=== PATIENT | male | born 1945 | race Caucasian/White ===

== ENCOUNTER 2020-03-04 12:06 | Day surgery (SDC) | payer OTHER ==
[~2020-03-04] VITALS: Ht 180.3 cm; Wt 91.8 kg
[~2020-03-04 12:06] MED LIST: ACET500 PO; Artificial Tea1 EACH BOTHEYES; Ascorbic Acid500 MG PO; CALCIUM PO; CENTRUM SILVER1 EAC2 PO; FIBER POWDER; FISH1000 PO; GABA100 PO; GLUC500 PO; HYDR25SUP PR; IBUP200 PO; MULVITMINF PO; SUCR1 PO; SULF500A PO; TRAM50 PO
--- NOTE | 2020-03-04 12:58 | NUR ---
PT ADMITTED TO [facility]. AGREES WITH PLANNED SURGERY. LUNG SOUNDS CLEAR. NOZIN NO NARES BILATERALLY.
--- NOTE | 2020-03-04 19:37 | NUR ---
SHIFT SUMMARY PAIN HAS BEEN DIFFICULT TO MANAGED. PT HAS REQUIRED IV PAIN MEDICATION. HE REMAINS DROWSY. CONTINUOUS PULSE OX PLACED FOR HIGH RISK PAIN MANAGEMENT. PT'S IS AT THE BEDSIDE FOR SUPPORT. PT TOLERATING PO. VSS. REPORT GIVEN TO LILLIAN GREGORY.
[2020-03-05 04:09] LABS: BASOPHILS ABSOLUTE AUTO 0.01 K/mm3 (0.00-0.23); BASOPHILS PERCENT AUTO 0 % (0-2); EOSINOPHILS PERCENT AUTO 0 % (0-6); Hematocrit 40.1 % (37.0-53.0); Hemoglobin 13.1 g/dL (13.5-17.5); IMMATURE GRAN ABSOLUTE AUTO 0.06 K/mm3 (0.00-0.10); IMMATURE GRAN PERCENT AUTO 0 % (0-1); LYMPHOCYTES ABSOLUTE AUTO 0.49 K/mm3 (0.84-5.20); LYMPHOCYTES PERCENT AUTO 4 % (21-46); MONOCYTES PERCENT AUTO 4 % (4-13); Mean Corpuscular HGB 30.3 pg (26.0-34.0); Mean Corpuscular HGB Conc 32.7 g/dL (31.5-36.5); Mean Corpuscular Volume 93 fL (80-100); Mean Platelet Volume 10.4 fL (9.1-12.4); NEUTROPHILS ABSOLUTE AUTO 12.56 K/mm3 (1.96-9.15); NEUTROPHILS PERCENT AUTO 92 % (41-73); Platelet Count 180 K/mm3 (150-400); RDW Coefficient Variation 12.7 % (11.7-14.2); RDW Standard Deviation 43.7 fL (35.1-46.3); Red Blood Cell Count 4.33 M/mm3 (4.30-5.90); White Blood Cell Count 13.72 K/mm3 (4.00-11.30)
--- NOTE | 2020-03-05 04:32 | NUR ---
SHIFT SUMMARY POD 1 R TKA [id number], PT UP AND AMBULATING. TOLERATING WELL. PAIN MANAGED PER EMAR. PT STATES ABLE TO SLEEP WELL T/O NIGHT. DROWSY AT START OF SHIFT BUT RESPONDS APPROPRIATLY. VOIDING AND TOLERATING PO, DENIES NAUSEA. POLAR DEEPAK IN PLACE. DRESSING CDI. PLAN TO WORK WITH THERAPY AND DISCHARGE HOME. PT REMAINS ON 1L 02 VIA NC DURING SLEEP, WILL TITRATE OFF ONCE MORE AWAKE.
[2020-03-05 04:33] LABS: Anion Gap 4 mmol/L (6-16); Blood Urea Nitrogen 24 mg/dL (8-24); Bun/Creatinine Ratio 28.1 (12.0-20.0); CO2, Blood 27 mmol/L (21-32); Calcium, Blood 8.5 mg/dL (8.5-10.1); Chloride, Blood 109 mmol/L (98-108); Creatinine, Blood 0.85 mg/dL (0.60-1.20); Glomerular Filtration Rate >60 (60-); Glucose, Blood 158 mg/dL (70-99); Magnesium, Blood 2.2 mg/dL (1.6-2.4); Potassium, Blood 4.7 mmol/L (3.5-5.5); Sodium, Blood 140 mmol/L (136-145)
[2020-03-05] MEDS ORDERED: CALCIUM 500 +1 EAC3 PO (11:19)
[2020-03-05] MEDS ORDERED: ENOX40I SC (11:21)
[2020-03-05] MEDS ORDERED: OXYC5 PO (11:22)
[2020-03-05] MEDS ORDERED: PROM25 PO (11:23)
[2020-03-05] MEDS ORDERED: SULTRIDS PO (11:23)
--- NOTE | 2020-03-05 12:38 | NUR ---
DISCHARGE PT AND SPOUSE PROVIDED WITH WRITTEN AND VERBAL DISCHARGE INSTRUCTIONS; THEY REPORTED UNDERSTANDING. PT WAS GIVEN TORADOL AND OXYCODONE PRIOR TO DISCHARGE FOR PAIN MANAGEMENT. PAIN AT 2/10 PRIOR TO DISCHARGE PT REPORTED PAIN MANAGED. BP 112/48 PRIOR TO DISCHARGE, PT HAD NO DIZZINESS, VSS. EDUCATION GIVEN REGARDING LOVENOX INJECTIONS. PT EDUCATED ABOUT TAKING PAIN MEDICATION, AND THE RISKS OF PAIN MEDICATION. PAIN MANAGED, PT TOLERATING PO AND VOIDING PRIOR TO DISCHARGE. PT CLEARED THERAPY AND DEMONSTRATED SAFE MOBILITY PRIOR TO DISCHARGE. PT ESCORTED OUT IN W/C BY NOE GREGORY.
== END 2020-03-05 12:38 | disposition home or self-care (01) ==
LOC: ORSCMMR 12:06 → ORD 15:45 → SURS 18:29 → ORSCMMR 18:29 → SURS 03-05 12:38 → ORSCMMR 03-05 12:38
PROVIDERS: Orthopaedic Surgery
PROC: 0SRC0J9 Replacement of Right Knee Joint with Synthetic Substitute, Cemented, Open Approach (ICD-10-PCS; principal; 2020-03-04 15:45)
PROC: 8E0YXBZ Computer Assisted Procedure of Lower Extremity (ICD-10-PCS; principal; 2020-03-04 15:45)
DX: M17.11 Unilateral primary osteoarthritis, right knee (principal); G47.33 Obstructive sleep apnea (adult) (pediatric); Z87.891 Personal history of nicotine dependence; Z85.46 Personal history of malignant neoplasm of prostate; Z79.899 Other long term (current) drug therapy; Z79.82 Long term (current) use of aspirin
CPT/HCPCS: 36415; 73560-RT; 80048; 83735; 85025; 88300; 94762; 97110; 97116; 97162; A9270; A9270-GY; C1713; C1776; J0171; J0690; J0735; J1100; J1170; J1650; J1885; J2250; J2405; J2704; J2795; J3010; J3370; J7120

== ENCOUNTER 2021-02-01 13:16 | Day surgery (SDC) | payer OTHER ==
[~2021-02-01] VITALS: Ht 180.3 cm; Wt 93.8 kg
[~2021-02-01 13:16] MED LIST changes: +CALCIUM 500 +1 EAC3 PO; +ENOX40I SC; +OXYC5 PO; +PROM25 PO; +SULTRIDS PO
== END 2021-02-01 15:52 | disposition home or self-care (01) ==
LOC: ORSCSDS 13:16
PROVIDERS: Internal Medicine Gastroenterology
PROC: 0D757ZZ Dilation of Esophagus, Via Natural or Artificial Opening (ICD-10-PCS; principal; 2021-02-01 14:30)
PROC: 0DBK8ZX Excision of Ascending Colon, Via Natural or Artificial Opening Endoscopic, Diagnostic (ICD-10-PCS; principal; 2021-02-01 14:30)
PROC: 0DBM8ZX Excision of Descending Colon, Via Natural or Artificial Opening Endoscopic, Diagnostic (ICD-10-PCS; principal; 2021-02-01 14:30)
PROC: 0DB58ZX Excision of Esophagus, Via Natural or Artificial Opening Endoscopic, Diagnostic (ICD-10-PCS; principal; 2021-02-01 14:30)
DX: Z12.11 Encounter for screening for malignant neoplasm of colon (principal); Z86.010 Personal history of colon polyps; D12.2 Benign neoplasm of ascending colon; D12.4 Benign neoplasm of descending colon; K21.00 Gastro-esophageal reflux disease with esophagitis, without bleeding; R13.14 Dysphagia, pharyngoesophageal phase; R07.9 Chest pain, unspecified; Z87.891 Personal history of nicotine dependence; Z85.46 Personal history of malignant neoplasm of prostate; Z79.899 Other long term (current) drug therapy
CPT/HCPCS: 88305; 88312; A9270; J2704; J7120

== ENCOUNTER → 2023-03-06 | Outpatient (CLI) | payer OTHER | END | disposition home or self-care (01) | LOC: LAB 16:50 → LAB SHORT 16:50 | DX: M77.42 Metatarsalgia, left foot (principal) | CPT/HCPCS: 84550 ==